=== PATIENT | female | born 1990 | race Caucasian/White ===

== ENCOUNTER 2019-01-20 18:17 | Emergency (ER) | payer SELFPAY ==
[2019-01-20 19:52] LABS: Urine Blood NEGATIVE (NEG); Urine Glucose NEGATIVE (NEG); Urine Protein NEGATIVE (NEG); Urine Specific Gravity 1.015 (1.005-1.030)
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
[2019-01-20] MEDS ORDERED: KETOROLAC 30 MG/ML INJ ONE (21:02)
[2019-01-20] MEDS ORDERED: CYCLOBENZAPRINE 10 MG TAB ONE (21:02)
== END 2019-01-20 21:47 | disposition home or self-care (01) ==
LOC: ER 18:17
DX: S16.1XXA Strain of muscle, fascia and tendon at neck level, initial encounter (principal); V49.50XA Passenger injured in collision with unspecified motor vehicles in traffic accident, initial encounter
CPT/HCPCS: 70450; 72125; 81003; 81025; 96372; 99284

== ENCOUNTER 2019-06-19 01:18 | Emergency (ER) | payer OTHER, SELFPAY ==
--- OUTSIDE RECORDS SUMMARY | 2019-06-19 01:20 | XMS REPORT ---
:1990 [facility] Address [address] [place] [address] Dr. Loza [address] [place] [id number] Care Team Providers Name Role Phone Unavailable Unavailable Unavailable Problems This patient has no known problems. Allergies, Adverse Reactions, Alerts This patient has no known allergies or adverse reactions. Medications This patient has no known medications.
[2019-06-19 02:26] LABS: Urine Bacteria <20 /HPF (<20); Urine Culture Reflex Order NOT NEEDED; Urine RBC NONE SEEN /HPF (NONE SEEN)
[2019-06-19 02:27] LABS: Urine Blood NEGATIVE (NEG); Urine Glucose NEGATIVE (NEG); Urine Protein NEGATIVE (NEG)
[2019-06-19 02:30] LABS: Absolute Lymphocytes (CBC) 2.4 K/uL (0.7-4.9); Basophils % 0.8 % (0-1.3); MPV 8.4 fL (7.6-11.3); RBC Red Blood Cell Count 4.84 M/uL (3.86-4.86)
[2019-06-19 03:14] LABS: ALT/SGPT 17 U/L (12-78); AST/SGOT 14 U/L (15-37); Albumin 4.1 g/dL (3.4-5.0); Alkaline Phosphatase 95 U/L (45-117); BUN Blood Urea Nitrogen 15 mg/dL (7-18); Bicarbonate 26 mmol/L (21-32); Bilirubin Direct < 0.1 mg/dL (0-0.2); Bilirubin Total 0.2 mg/dL (0.2-1.0); Glucose Level 127 mg/dL (74-106); Lipase 150 U/L (73-393); Potassium 3.7 mmol/L (3.5-5.1); Protein, Total 7.8 g/dL (6.4-8.2); Sodium Level 142 mmol/L (136-145)
--- NOTE | 2019-06-19 04:58 | EDPHYS ---
Physician Documentation [facility] Name: Joyce Jeffers Age: 28 yrs Sex: Female : 1990 Arrival Date: 06/19/2019 Time: 01:22 Bed 7 Private MD: Carson Mendoza ED Physician Philip Young HPI: 06/19 02:04 This 28 yrs old Female presents to ER via Ambulatory with complaints of Low gs Blood Sugar. 02:04 The patient or guardian reports hypoglycemia, weight gain, that was potentially snw precipitated by unknown, with the patient's symptoms witnessed by family, Treatment prior to arrival includes: ingestion of sugary substance, pt states she has taken 5 sugar tablets, milk, orange juice, peanut butter and honey sandwich in past 4 hours, feels hungry, shaky, FSBS in ED 111mg/dl. Associated signs and symptoms: Pertinent positives: polydipsia, polyphagia, weakness, tingling, shakiness. Current symptoms: In the emergency department the patient's symptoms are unchanged from the initial presentation. x 2 yrs. The patient has been recently seen by a physician: the patient's primary care provider, Dr. Mendoza, referred to Endocrinology. Appt in 2 weeks. 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 - Social history:: Smoking status: Patient/guardian denies using tobacco. - Ebola Screening: : Patient negative for fever greater than or equal to 101.5 degrees Fahrenheit, and additional compatible Ebola Virus Disease symptoms. ROS: 02:04 Eyes: Negative for injury, pain, redness, and discharge, ENT: Negative for injury, snw pain, and discharge, Neck: Negative for injury, pain, and swelling, Cardiovascular: Negative for chest pain, palpitations, and edema, Respiratory: Negative for shortness of breath, cough, wheezing, and pleuritic chest pain, Back: Negative for injury and pain, : Negative for injury, bleeding, discharge, and swelling, MS/Extremity: Negative for injury and deformity, Skin: Negative for injury, rash, and discoloration. 02:04 Constitutional: Positive for body aches, malaise, poor PO intake, shaky, breathing hard. 02:04 Abdomen/GI: Positive for feeling significantly low on blood sugar, pt states she gets low sugar just post eating and can't keep her sugar up. 02:04 Neuro: Positive for dizziness, headache, numbness, tingling, of the all over. Exam: 02:02 Constitutional: This is a well developed, well nourished patient who is awake, alert, snw and in no acute distress. Head/Face: Normocephalic, atraumatic. Eyes: Pupils equal round and reactive to light, extra-ocular motions intact. Lids and lashes normal. Conjunctiva and sclera are non-icteric and not injected. Cornea within normal limits. Periorbital areas with no swelling, redness, or edema. ENT: Nares patent. No nasal discharge, no septal abnormalities noted. Tympanic membranes are normal and external auditory canals are clear. Oropharynx with no redness, swelling, or masses, exudates, or evidence of obstruction, uvula midline. Mucous membranes moist. Neck: Trachea midline, no thyromegaly or masses palpated, and no cervical lymphadenopathy. Supple, full range of motion without nuchal rigidity, or vertebral point tenderness. No Meningismus. Chest/axilla: Normal chest wall appearance and motion. Nontender with no deformity. No lesions are appreciated. Cardiovascular: Regular rate and rhythm with a normal S1 and S2. No gallops, murmurs, or rubs. Normal PMI, no JVD. No pulse deficits. Respiratory: Lungs have equal breath sounds bilaterally, clear to auscultation and percussion. No rales, rhonchi or wheezes noted. No increased work of breathing, no retractions or nasal flaring. Abdomen/GI: Soft, non-tender, with normal bowel sounds. No distension or tympany. No guarding or rebound. No evidence of tenderness throughout. Back: No spinal tenderness. No costovertebral tenderness. Full range of motion. Skin: Warm, dry with normal turgor. Normal color with no rashes, no lesions, and no evidence of cellulitis. MS/ Extremity: Pulses equal, no cyanosis. Neurovascular intact. Full, normal range of motion. Neuro: Awake and alert, GCS 15, oriented to person, place, time, and situation. Cranial nerves II-XII grossly intact. Motor strength 5/5 in all extremities. Sensory grossly intact. Cerebellar exam normal. Normal gait. 02:02 Psych: Behavior/mood is anxious, Affect is animated, Oriented to person, place, time, Judgement / Insight is normal. Vital Signs: 01:32 BP 133 / 94; Pulse 94; Resp 18 S; Temp 98.0(O); Pulse Ox 100% on R/A; Weight 72.57 kg jd3 (R); Height 5 ft. 5 in. (165.10 cm) (R); Pain 0/10; 03:58 BP 111 / 66; Pulse 76; Resp 16; Pulse Ox 100% on R/A; Pain 0/10; lp1 01:32 Body Mass Index 26.63 (72.57 kg, 165.10 cm) jd3 MDM: 01:24 Patient medically screened. snw 03:14 Data reviewed: vital signs, nurses notes. Data interpreted: Pulse oximetry: on room air snw is 100 %. Interpretation: normal. Counseling: I had a detailed discussion with the patient and/or guardian regarding: the historical points, exam findings, and any diagnostic results supporting the discharge/admit diagnosis, the presence of at least one elevated blood pressure reading (>120/80) during this emergency department visit, lab results, radiology results. Transition of care: After a detail discussion of the patient's case, care is transferred to Philip Young MD. 06/19 01:25 Order name: Urine Microscopic Only; Complete Time: 02:26 snw 06/19 01:51 Order name: CBC with Diff; Complete Time: 02:47 snw 06/19 01:51 Order name: Chem 7; Complete Time: 04:09 snw 06/19 01:51 Order name: TSH; Complete Time: 04:09 snw 06/19 01:51 Order name: Cortisol; Complete Time: 04:09 snw 06/19 01:56 Order name: Urine Dipstick--Ancillary (enter results); Complete Time: 02:27 oe 06/19 01:25 Order name: FSBS; Complete Time: 01:43 snw 06/19 01:57 Order name: CT Abd/Pelvis - IV Contrast Only snw 06/19 01:57 Order name: Urine --Ancillary (enter results); Complete Time: 02:26 oe 06/19 02:20 Order name: Liver (Hepatic) Function; Complete Time: 04:09 EDMS 06/19 02:20 Order name: Lipase; Complete Time: 04:09 EDMS 06/19 03:16 Order name: T4 Free; Complete Time: 04:09 EDMS 06/19 01:25 Order name: Urine Test (obtain specimen); Complete Time: 01:50 snw 06/19 01:25 Order name: Urine Dipstick-Ancillary (obtain specimen); Complete Time: 01:50 snw 06/19 01:51 Order name: SL; Complete Time: 03:26 snw Administered Medications: No medications were administered Point of Care Testing: Blood Glucose: 01:30 Blood Glucose: 111 mg/dL; oe 02:36 Blood Glucose: 132 mg/dL; lp1 03:58 Blood Glucose: 93 mg/dL; lp1 05:15 Blood Glucose: 87 mg/dL; lp1 Ranges: Critical Glucose Levels:Adult <50 mg/dl or >400 mg/dl <40 mg/dl or >180 mg/dl Disposition: 06/19/19 04:56 Discharged to Home. Impression: Hypoglycemia, unspecified. - Condition is Stable. - Discharge Instructions: Blood Glucose Monitoring, Adult. - Medication Reconciliation Form, Thank You Letter, Antibiotic Education, Prescription Opioid Use form. - Follow up: Private Physician; When: 1 - 2 days; Reason: Re-evaluation by your physician. Signatures: Dispatcher [employer] EDME Nica King, FERMIN-C ZONING ASSISTANT-Csnw Brandie Mix RN RN lp1 Philip Young MD MD gs Davies, Jonathon, RN RN jd3 Corrections: (The following items were deleted from the chart) 02:20 01:57 HEPATIC FUNCTION+C.LAB.BRZ ordered. EDME EDMS 02:20 01:57 LIPASE+C.LAB.BRZ ordered. EDME EDMS 04:57 02:04 This 28 yrs old Female presents to ER via Ambulatory with complaints of gs Low Blood Sugar, Shortness Of Breath. snw 05:30 04:56 06/19/2019 04:56 Discharged to Home. Impression: Hypoglycemia, unspecified. lp1 Condition is Stable. Forms are Medication Reconciliation Form, Thank You Letter, Antibiotic Education, Prescription Opioid Use. Follow up: Private Physician; When: 1 - 2 days; Reason: Re-evaluation by your physician. gs
--- NOTE | 2019-06-19 04:58 | ER ---
Nurse's Notes [facility] Name: Joyce Jeffers Age: 28 yrs Sex: Female : 1990 Arrival Date: 06/19/2019 Time: 01:22 Bed 7 Private MD: Carson Mendoza Diagnosis: Hypoglycemia, unspecified Presentation: 06/19 01:33 Presenting complaint: Patient states: "I blood sugar is low. I went to the doctor tali recently and said that I had a low blood sugar and referred me to an resident services supervisor. I have been battling with these low blood sugars all week but today I has been harder. in the last 3 hours I have had to take 5 glucose tabs to keep it up and ate something. that makes 10 glucose tabs today. I don't know what my sugar is, I don't have the right equipment so I have been having to go by feeling. I get shaky, dizzy, blurred vision, and my feet and lips tingle.". Transition of care: patient was not received from another setting of care. Onset of symptoms was June 18, 2019. Risk Assessment: Do you want to hurt yourself or someone else? Patient reports no desire to harm self or others. Initial Sepsis Screen: Does the patient meet any 2 criteria? No. Patient's initial sepsis screen is negative. Does the patient have a suspected source of infection? No. Patient's initial sepsis screen is negative. Care prior to arrival: None. 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 - Social history:: Smoking status: Patient/guardian denies using tobacco. - Ebola Screening: : Patient negative for fever greater than or equal to 101.5 degrees Fahrenheit, and additional compatible Ebola Virus Disease symptoms. Screenin:43 Abuse screen: Denies threats or abuse. Denies injuries from another. Nutritional lp1 screening: No deficits noted. Tuberculosis screening: No symptoms or risk factors identified. Fall Risk None identified. Assessment: 01:39 General: Appears in no apparent distress. Behavior is anxious. Pain: Denies pain. lp1 Neuro: Level of Consciousness is awake, alert, obeys commands, Oriented to person, place, time, situation, Appropriate for age Gait is steady, Reports paresthesias in right leg and left leg "feeling shaky like my blood sugar is low". Cardiovascular: Patient's skin is warm and dry. Respiratory: Reports shortness of breath Airway is patent Respiratory effort is even, unlabored, Respiratory pattern is regular, Breath sounds are clear bilaterally. the patient has mild shortness of breath. GI: Reports excessive hunger. : No signs and/or symptoms were reported regarding the genitourinary system. EENT: No signs and/or symptoms were reported regarding the EENT system. Derm: Skin is pink, warm \\T\\ dry. Musculoskeletal: Circulation, motion, and sensation intact. 02:30 Reassessment: Patient appears in no apparent distress at this time. Patient and/or lp1 family updated on plan of care and expected duration. Pain level reassessed. Patient resting, eyes closed, respirations unlabored. 03:55 Reassessment: Patient appears in no apparent distress at this time. Patient and/or lp1 family updated on plan of care and expected duration. Pain level reassessed. Patient is alert, oriented x 3, equal unlabored respirations, skin warm/dry/pink. Patient request to have BS checked. 05:15 Reassessment: Patient appears in no apparent distress at this time. Patient is alert, lp1 oriented x 3, equal unlabored respirations, skin warm/dry/pink. 05:15 Neuro: Gait is steady. lp1 Vital Signs: 01:32 BP 133 / 94; Pulse 94; Resp 18 S; Temp 98.0(O); Pulse Ox 100% on R/A; Weight 72.57 kg jd3 (R); Height 5 ft. 5 in. (165.10 cm) (R); Pain 0/10; 03:58 BP 111 / 66; Pulse 76; Resp 16; Pulse Ox 100% on R/A; Pain 0/10; lp1 01:32 Body Mass Index 26.63 (72.57 kg, 165.10 cm) [facility] ED Course: 01:22 Patient arrived in ED. cl3 01:23 Carson Mendoza MD is Private Physician. cl3 01:24 Nica King FNP-C [facility]. snw 01:24 Philip Young MD is Attending Physician. snw 01:27 Brandie Mix, RN is Primary Nurse. lp1 01:39 Triage completed. jd3 01:40 Arm band placed on. jd3 01:44 Patient has correct armband on for positive identification. lp1 02:08 Radiology exam delayed due to lab results not completed at this time. (BUN/Creatinine). eh 02:10 Initial lab(s) drawn, by me, sent to lab. Missed attempt(s): 22 gauge in left lp1 antecubital area. 02:20 No provider procedures requiring assistance completed. lp1 02:35 Radiology exam delayed due to lab results not completed at this time. (BUN/Creatinine). eh 02:36 Inserted saline lock: 22 gauge in right antecubital area, using aseptic technique. lp1 03:59 CT completed. Patient tolerated procedure well. Patient moved to CT via wheelchair. Patient moved back from CT. 04:01 CT Abd/Pelvis - IV Contrast Only In Process Unspecified. EDMS 05:30 IV discontinued, No redness/swelling at site. Pressure dressing applied. lp1 Administered Medications: No medications were administered Point of Care Testing: Blood Glucose: 01:30 Blood Glucose: 111 mg/dL; oe 02:36 Blood Glucose: 132 mg/dL; lp1 03:58 Blood Glucose: 93 mg/dL; lp1 05:15 Blood Glucose: 87 mg/dL; lp1 Ranges: Outcome: 04:56 Discharge ordered by . 05:30 Discharged to home ambulatory, with significant other. lp1 05:30 Condition: good 05:30 Discharge instructions given to patient, Instructed on discharge instructions, follow up and referral plans. Demonstrated understanding of instructions, follow-up care. 05:30 Patient left the ED. lp1 Signatures: Dispatcher [employer] EDMS Nica King FNP-C COMPUTER GRAPHICS ILLUSTRATOR-Csnw Cody Stewart Brandie Mix, RN RN lp1 Jason Eddy Philip Young MD MD Nas Hooper RN RN jd3 Sahil, Charde cl3 Corrections: (The following items were deleted from the chart) 01:43 01:39 Neuro: Level of Consciousness is awake, alert, obeys commands, Oriented to lp1 person, place, time, situation, Appropriate for age Gait is steady, Reports "feeling shaky like my blood sugar is low". lp1 01:44 01:39 Respiratory: Reports shortness of breath Airway is patent Respiratory effort is lp1 even, unlabored, Respiratory pattern is regular, Breath sounds are clear bilaterally. lp1
--- NOTE | 2019-06-19 09:12 | RAD REPORT ---
EXAM DESCRIPTION: CT - Abdomen Pelvis W Contrast - 06/19/2019 6:47 am CLINICAL HISTORY: The patient is 28 years old and is Female; weakness, htn, hypoglycemia TECHNIQUE: Axial computed tomography images of the abdomen and pelvis with intravenous contrast. S agittal and coronal reformatted images were created and reviewed. This CT exam was performed using one or more of the following dose reduction techniques: automated exposure control, adjustment of t he mA and/or kV according to patient size, and/or use of iterative reconstruction technique. COMPARISON: No relevant prior studies available. FINDINGS: LUNG BASES: Unremarkable. No mass. No consolidation. ABDOMEN: LIVER: Unremarkable. No mass. GALLBLADDER AND BILE DUCTS: The gallbladder is contracted. PANCREAS: No ductal dilation. No mass. SPLEEN: Unremarkable. ADRENALS: Unremarkable. No mass. KIDNEYS AND URETERS: Unremarkable. No solid mass. No hydronephrosis. STOMACH AND BOWEL: The stomach is significantly distended with food contents. The small bowel is normal in caliber. A moderate amount stool is present throughout the colon. There is no mucosal thic kening or evidence of bowel obstruction. PELVIS: APPENDIX: The appendix is normal in caliber without surrounding inflammation. BLADDER: The bladder is well distended. REPRODUCTIVE: Unremarkable as visualized. ABDOMEN and PELVIS: INTRAPERITONEAL SPACE: Unremarkable. No free air. No significant fluid collection. BONES/JOINTS: No acute fracture. SOFT TISSUES: The soft tissues are normal. VASCULATURE: Unremarkable. No abdominal aortic aneurysm. LYMPH NODES: Unremarkable. No enlarged lymph nodes. IMPRESSION: No acute findings on this contrasted CT of the abdomen and pelvis to explain the patient 's symptoms. Electronically signed by: Argelia Rosales MD 06/19/2019 4:16 AM CDT Due to temporary technical issues with the PACS/Fluency reporting system, reports are being signed by the in house radiologist as a courtesy to ensure prompt reporting. The interpreting radiologist is f ully responsible for the content of the report.
== END 2019-06-19 05:30 | disposition home or self-care (01) ==
LOC: ER 01:18
DX: E16.2 Hypoglycemia, unspecified (principal)
CPT/HCPCS: 85025; 80048; 36415; 81025; 82962 ×4; 80076; 84443; 84439; 83690; 82533; 74177; Q9967; 81003; 81015; 99284